=== PATIENT | female | born 1990 | race Caucasian/White ===

== ENCOUNTER 2017-11-11 21:22 | Emergency (ER) | payer OTHER ==
[~2017-11-11] VITALS: Ht 167.6 cm; Wt 70.3 kg
[2017-11-11] MEDS ORDERED: SYNTHROID75 MCG PO (21:36)
[2017-11-11] MEDS ORDERED: PRENATABS FA T1 EACH PO (21:37)
[2017-11-11] MEDS ORDERED: ZOLOFT50 MG PO (21:41)
[2017-11-11 23:09] LABS: URINE BILIRUBIN NEGATIVE (Negative); URINE BLOOD NEGATIVE (Negative); URINE CLARITY CLEAR; URINE COLOR YELLOW; URINE GLUCOSE-RANDOM NEGATIVE (Negative); URINE KETONES NEGATIVE (Negative); URINE LEUKOCYTES-REFLEX NEGATIVE (Negative); URINE NITRITE-REFLEX NEGATIVE (Negative); URINE PROTEIN NEGATIVE (Negative); URINE SPECIFIC GRAVITY <= 1.005 (1.005-1.030); URINE UROBILINOGEN 0.2 E.U./dl (0.2-1.0)
[2017-11-11 23:50] VITALS: BP 99/58
== END 2017-11-11 23:51 | disposition home or self-care (01) ==
LOC: M.ERS 21:22
PROVIDERS: Personal Emergency Response Attendant
DX: O26.892 Other specified pregnancy related conditions, second trimester (principal); R55 Syncope and collapse; E03.9 Hypothyroidism, unspecified; Z3A.20 20 weeks gestation of pregnancy